=== PATIENT | female | born 1995 | race Caucasian/White ===

== ENCOUNTER → 2019-02-15 08:26 | Outpatient (CLI) | payer SELFPAY ==
[2019-02-12 09:11] LABS: Bacteria 0 SEEN /hpf (None Seen); Mucous, Urine 0 SEEN /hpf (<or=2+); Squamous Epithelial Cells - UA 0 SEEN /hpf (5-10); White Blood Cells 0 SEEN /hpf (0-5)
[2019-02-12 09:30] LABS: Color, Urine Yellow (Yellow); Glucose, Dipstick Normal (Normal); Hematocrit 42.2 % (37-47); Hemoglobin 14.8 g/dl (12.0-15.0); Ketone-Dipstick Negative (Negative); Leukocyte Esterase-Dipstick Negative /ul (Negative); Mean Corp Hgb Conc 35.1 g/gl (32-36); Mean Corpuscular Hgb 30.8 pg (27.0-32.0); Mean Corpuscular Volume 87.9 fL (81-99); Mean Platelet Vol. 9.9 fl (6.2-12.0); Nitrite-Dipstick Negative (Negative); Occult Blood-Urine 25 /ul (Negative); Platelet Count 163 K/mm3 (150-450); Protein-Dipstick Negative (Negative); RBC Distribution Width CV 12.4 % (11.6-14.6); RBC Distribution Width SD 39.8 fl (35.1-43.9); Urine Bilirubin Dipstick Negative (Negative); Urine Clarity Clear (Clear); Urine Urobilinogen Normal (Normal); White Blood Count 4.7 K/mm3 (4.4-11.0)
[2019-02-12 09:37] LABS: Scan Indicated on CBC? Y/N NO
[2019-02-12 09:44] LABS: Red Blood Cells-Urine 0-5 SEEN /hpf (0-5)
[2019-02-12 11:23] LABS: Homocysteine 5.4 umol/L (3.2-10.7)
[2019-02-12 11:41] LABS: ALB/GLOB Ratio 0.9 RATIO (0.9-2.4); AST(SGOT) 16 U/L (15-37); Alanine Aminotransfer ALT/SGPT 17 U/L (13-56); Alkaline Phosphatase 65 U/L (45-117); Anion Gap 9 (5-15); BUN 10 mg/dL (7-18); BUN/Creat Ratio 14.7 RATIO (10-20); Calcium,Total 8.9 mg/dL (8.5-10.1); Chloride 105 mmol/L (98-107); Cholesterol 159 mg/dL (200); Creatinine, Serum 0.68 mg/dL (0.55-1.02); EST Glomerular Filtration Rate 114 mL/min (>60); Est Glom Filt Rate - Afr Amer 138 mL/min (>60); Globulin 4.4 g/dL (2.2-4.2); Glucose 93 mg/dL (74-106); High Density Lipoprotein 70 mg/dL; Potassium 3.8 mmol/L (3.5-5.1); Protein, Total 8.4 g/dL (6.4-8.2); Sodium Level 141 mmol/L (136-145); Thyroid Stim Hormone (TSH) 1.91 uIU/mL (0.358-3.74); Triglycerides 46 mg/dL; Very Low Density Lipoprotein 9 mg/dL (5-40)
[2019-02-12 11:51] LABS: Vitamin D,25 Hydroxy 10.3 ng/mL (29.95-100.01)
[2019-02-12 14:04] LABS: Hemoglobin A1c 5.1 % (4.2-6.3)
--- NOTE | 2019-02-15 09:00 | EKG12_ITS ---
Test Reason : EXEC PHYS Blood Pressure : / mmHG Vent. Rate : 094 BPM Atrial Rate : 094 BPM P-R Int : 118 ms QRS Dur : 070 ms QT Int : 338 ms P-R-T Axes : 015 060 027 degrees QTc Int : 422 ms Normal sinus rhythm Normal ECG Confirmed by RICCARDO HINTON, ERLINDA ([id number]), story editor JOSE CROCKETT ([id number]) on 02/19/2019 1:45:58 PM Referred By: Murali Burgos Confirmed By:ERLINDA GU MD
--- NOTE | 2019-02-15 20:06 | BFS_ITS ---
Reason For Study: Screening Carotid Duplex Ultrasound Abdominal Aorta The right maximum ICA velocity is 117.4/59 cm/s. The maximal outside diameter of the proximal aorta The left maximum ICA velocity is 104.5/35.2 cm/s. measures 1.0 x 1.06 cm in the cross-sectional The right ECA velocity is less than 125 cm/s. axis. The left ECA velocity is less than 125 cm/s. The maximal outside diameter of the proximal aorta There is no plaque formation noted on the right measures 1.04 cm in the longitudinal axis. side. There is no plaque formation noted on the left side. Interpretation Summary Normal carotid artery screening (0 to 15% narrowing). Normal aortic ultrasound exam. Performed By: Lilliam Membreno RVT
[2019-02-22 12:25] LABS: HPV Reflexed? NOT INDICATED
== END ==
PROVIDERS: Referring Provider Internal Medicine; Visit Provider Internal Medicine
DX: Z00.00 Encounter for general adult medical examination without abnormal findings (principal)
CPT/HCPCS: 36415; 80053; 80061; 81001; 82306; 83036; 83090; 84443; 85027; 88175; 93005; G0145

== ENCOUNTER → 2022-02-07 | Outpatient (CLI) | payer SELFPAY ==
[2022-02-13 15:43] LABS: HPV Reflexed? NOT INDICATED
== END | disposition home or self-care (01) ==
LOC: LABSPEC 02-11 15:52
PROVIDERS: Visit Provider Obstetrics & Gynecology
DX: Z12.4 Encounter for screening for malignant neoplasm of cervix (principal)
CPT/HCPCS: 88175; G0145